=== PATIENT | male | born 1965 | race American Indian/Alaskan Native ===

== ENCOUNTER 2016-03-29 09:44 | Emergency (ER) | payer OTHER ==
[2016-03-29] MEDS ORDERED: MOTRIN PO ONE (10:18)
--- NOTE | 2016-03-29 12:24 | XRay Report ---
ROUTINE CHEST, TWO VIEWS: HISTORY: Shortness of breath, wheezing. No comparison. There is mild hyperinflation versus good inspiration. Correlate for history of smoking. A subtle opacity is identified at the left lung base on the PA view only. This may represent an early infiltrate. The remainder of the lungs are clear. No pleural effusion or pneumothorax. Normal heart and mediastinal structures. Normal bony thorax. IMPRESSION: Mild hyperinflation. Questionable early infiltrate at the left lung base. Correlate for early pneumonia.
[2016-03-29 12:25] LABS: Basophils % (Auto) 0.3 % (0.0-1.8); Eosinophils % (Auto) 0.1 % (0.0-4.3); Hematocrit 47.3 % (35.5-45.6); Hemoglobin 15.7 gm/dl (11.8-15.2); Mean Corpuscular HGB Conc 33 % (32-34); Mean Corpuscular Hemoglobin 30 pg (28-32); Mean Corpuscular Volume 90 fl (84-94); Platelet Count 249 K/mm3 (140-440); Red Blood Count 5.26 M/mm3 (3.65-5.03); Red Cell Distribution Width 12.6 % (13.2-15.2); White Blood Count 17.7 K/mm3 (4.5-11.0)
[2016-03-29 12:43] LABS: Anion Gap 21 mmol/L; BUN/Creatinine Ratio 8.33; Blood Urea Nitrogen 10 mg/dL (9-20); Calcium 9.7 mg/dL (8.4-10.2); Carbon Dioxide 21 mmol/L (22-30); Chloride 96.9 mmol/L (98-107); Glucose 103 mg/dL (75-100); Potassium 4.2 mmol/L (3.6-5.0); Sodium 135 mmol/L (137-145)
[2016-03-29 12:46] VITALS: BP 110/90
[2016-03-29] MEDS ORDERED: NACL 0.9% 1000 ML 1,000 ML IV ONE (12:57)
[2016-03-29] MEDS ORDERED: ROCEPHIN/NS 1 GM/50 ML 1 GM/50 ML BAG IV ONE (12:58)
--- NOTE | 2016-03-29 13:03 | Emergency Department Report ---
- General Chief Complaint: Upper Respiratory Infection Stated Complaint: COUGH/CHILLS/CONGESTION Time Seen by Provider: 03/29/16 11:47 Source: patient Mode of arrival: Ambulatory Limitations: No Limitations - History of Present Illness Initial Comments: Patient presents with sob, cough, congestion, fever x 4 days. Denies any medical hx except had pneumonia "a long time ago." Denies n/v/d, abdominal pain. MD Complaint: fever, cough, nasal congestion -: Gradual Severity scale (0 -10): 5 Consistency: intermittent Worsens With: nothing Associated Symptoms: fever, chills, nasal congestion, cough. denies: abdominal pain, nausea, vomiting, diarrhea - Related Data Previous Rx's Medication Instructions Recorded Last Taken Type ALBUTEROL Inhaler [ProAir HFA 2 puff IH QID PRN #1 inhalation 03/29/16 Unknown Rx Inhaler] Azithromycin [Zithromax Z-SEAN] 250 mg PO DAILY #6 tablet 03/29/16 Unknown Rx Allergies Allergy/AdvReac Type Severity Reaction Status Date / Time No Known Allergies Allergy Verified 03/29/16 10:18 ED Review of Systems ROS: Stated complaint: COUGH/CHILLS/CONGESTION Other details as noted in HPI Constitutional: denies: chills, fever Eyes: denies: eye pain, eye discharge, vision change ENT: congestion. denies: ear pain, throat pain Respiratory: cough, shortness of breath. denies: wheezing Cardiovascular: denies: chest pain, palpitations Endocrine: no symptoms reported Gastrointestinal: denies: abdominal pain, nausea, diarrhea Genitourinary: denies: urgency, dysuria Musculoskeletal: denies: back pain, joint swelling, arthralgia Skin: denies: rash, lesions Neurological: denies: headache, weakness, paresthesias ED Past Medical Hx - Past Medical History Previous Medical History?: No - Surgical History Past Surgical History?: No - Social History Smoking Status: Current Every Day Smoker Substance Use Type: Alcohol - Medications Home Medications: Home Medications Medication Instructions Recorded Confirmed Last Taken Type ALBUTEROL Inhaler [ProAir HFA 2 puff IH QID PRN #1 inhalation 03/29/16 Unknown Rx Inhaler] Azithromycin [Zithromax Z-SEAN] 250 mg PO DAILY #6 tablet 03/29/16 Unknown Rx ED Physical Exam - General Limitations: No Limitations General appearance: alert, in no apparent distress, other (nontoxic appearance) - Head Head exam: Present: atraumatic, normocephalic - Eye Eye exam: Present: normal appearance, PERRL - ENT ENT exam: Present: TM's normal bilaterally - Expanded ENT Exam Expanded Mouth exam: Present: normal external inspection Teeth exam: Present: normal inspection Throat exam: Positive: normal inspection - Neck Neck exam: Present: normal inspection, full ROM. Absent: tenderness, lymphadenopathy - Respiratory Respiratory exam: Present: normal lung sounds bilaterally, wheezes (right lobe) . Absent: respiratory distress - Cardiovascular Cardiovascular Exam: Present: normal rhythm, tachycardia. Absent: systolic murmur, diastolic murmur, rubs, gallop - GI/Abdominal GI/Abdominal exam: Present: soft, normal bowel sounds. Absent: tenderness - Extremities Exam Extremities exam: Present: normal inspection, full ROM - Back Exam Back exam: Present: normal inspection, full ROM - Neurological Exam Neurological exam: Present: alert, oriented X3 - Psychiatric Psychiatric exam: Present: normal affect, normal mood - Skin Skin exam: Present: warm, dry, intact, normal color. Absent: rash ED Course Vital Signs 03/29/16 03/29/16 10:14 12:46 Temperature 101.5 F H 98.6 F Pulse Rate 128 H 118 H Respiratory 18 20 Rate Blood Pressure 144/109 Blood Pressure 110/90 [Left] O2 Sat by Pulse 98 97 Oximetry - Reevaluation(s) Reevaluation #1: 03/29/16 13:[address] Zavaleta about this pt, she informs to give IV fluids and 1g of Rocephin, d/c on azithromax ED Medical Decision Making - Lab Data Result diagrams: 03/29/16 12:14 03/29/16 12:14 - Radiology Data ROUTINE CHEST, TWO VIEWS: HISTORY: Shortness of breath, wheezing. No comparison. There is mild hyperinflation versus good inspiration. Correlate for history of smoking. A subtle opacity is identified at the left lung base on the PA view only. This may represent an early infiltrate. The remainder of the lungs are clear. No pleural effusion or pneumothorax. Normal heart and mediastinal structures. Normal bony thorax. IMPRESSION: Mild hyperinflation. Questionable early infiltrate at the left lung base. Correlate for early pneumonia. - Medical Decision Making Patient presents with fever, cough, congestion 4 days. No medical history except for pneumonia which he states was a long time ago. Elevated heart rate the latest being 118, elevated blood pressure on arrival but now 110/90, fever of 101.5 now 98 after ibuprofen. Chest xray shows early pneumonia. Patient has received Rocephin 1 g IV and 1000 normal saline bolus. I will give him a prescription for Zithromax, albuterol inhaler. I will advise him to follow up with his PCP in 3-4 days for reevaluation of his pneumonia. White count is 17, 000 - Differential Diagnosis uri, pneumonia Critical Care Time: No Critical care attestation.: If time is entered above; I have spent that time in minutes in the direct care of this critically ill patient, excluding procedure time. ED Disposition Clinical Impression: Pneumonia Disposition: DISCHARGED TO HOME OR SELFCARE Is pt being admited?: No Does the pt Need Aspirin: No Condition: Stable Instructions: Bacterial Pneumonia (ED) Additional Instructions: It is advised that you stay home and rest for a couple of days, increase fluid intake, take your medications without missing any doses. Please f/u with your primary care provider in 3-4 days to re-evaluate wheezing, and fever. If shortness of breath worsens, chest pain, fever uncontrolled by OTC ibuprofen return back to the ED. Prescriptions: ALBUTEROL Inhaler [ProAir HFA Inhaler] 2 puff IH QID PRN #1 inhalation PRN Reason: Shortness Of Breath Azithromycin [Zithromax Z-SEAN] 250 mg PO DAILY #6 tablet Referrals: PRIMARY CARE, [Primary Care Provider] - 3-5 Days Forms: Work/School Release Form(ED) Time of Disposition: 13:54
== END 2016-03-29 14:48 | disposition home or self-care (01) ==
LOC: ED 09:44
DX: J18.9 Pneumonia, unspecified organism (principal); F17.200 Nicotine dependence, unspecified, uncomplicated
CPT/HCPCS: 36415; 71020; 80048; 85025; 96365; 99284; J0696; J7030

== ENCOUNTER 2017-02-28 09:37 | Emergency (ER) | payer SELFPAY ==
--- NOTE | 2017-02-28 13:54 | Emergency Department Report ---
HPI - General Chief Complaint: Upper Respiratory Infection Time Seen by Provider: 02/28/17 13:53 - HPI HPI: Patient reports fever, nasal and chest congestion. He said he has been having intermittent pain to right facial area. Denies any pain to his right eye as noted in triage note where it says right eye but he said pain is a right facial area . He said his symptoms started yesterday. He took some Tylenol without any relief. Pain to right facial area 7 out of 10 and aching on and off. Denies any fever but reports that he has chills and body aches. Denies any chest pain or shortness of breath. Denies any abdominal or back pain. ED Past Medical Hx - Past Medical History Previous Medical History?: No - Surgical History Past Surgical History?: No - Family History Family history: no significant - Social History Smoking Status: Current Every Day Smoker Substance Use Type: Alcohol - Medications Home Medications: Home Medications Medication Instructions Recorded Confirmed Last Taken Type ALBUTEROL Inhaler [ProAir HFA 2 puff IH QID PRN #1 inhalation 03/29/16 Unknown Rx Inhaler] Azithromycin [Zithromax Z-SEAN] 250 mg PO DAILY #6 tablet 03/29/16 Unknown Rx Ibuprofen [Motrin] 600 mg PO Q8H PRN #15 tablet 02/28/17 Unknown Rx Oseltamivir [Tamiflu] 75 mg PO Q12H 5 Days #10 capsule 02/28/17 Unknown Rx guaiFENesin/CODEINE [Robitussin AC] 5 ml PO Q8H PRN #75 ml 02/28/17 Unknown Rx ED Review of Systems ROS: Stated complaint: FEVER,CONGESTION Other details as noted in HPI Comment: All other systems reviewed and negative Constitutional: no symptoms reported Eyes: denies: eye pain, eye discharge ENT: throat pain, congestion. denies: ear pain Respiratory: cough. denies: orthopnea, shortness of breath, SOB with exertion, SOB at rest, stridor, wheezing Cardiovascular: denies: chest pain, palpitations, dyspnea on exertion, edema, syncope, paroxysmal nocturnal dyspnea Gastrointestinal: denies: abdominal pain, nausea, vomiting, diarrhea Genitourinary: denies: urgency, dysuria, frequency, hematuria, discharge Musculoskeletal: myalgia. denies: back pain, arthralgia Skin: denies: rash Neurological: headache. denies: weakness, numbness, paresthesias, confusion, abnormal gait, vertigo Physical Exam - Physical Exam Vital Signs: Vital Signs 02/28/17 10:18 Temperature 98.2 F Pulse Rate 112 H Respiratory 18 Rate Blood Pressure 125/93 O2 Sat by Pulse 99 Oximetry Vital Signs 02/28/17 02/28/17 10:18 14:42 Temperature 98.2 F Pulse Rate 112 H Respiratory 18 18 Rate Blood Pressure 125/93 O2 Sat by Pulse 99 Oximetry Vital Signs 02/28/17 02/28/17 02/28/17 10:18 14:42 16:00 Temperature 98.2 F 98.9 F Pulse Rate 112 H 91 H Respiratory 18 18 16 Rate Blood Pressure 125/93 125/82 O2 Sat by Pulse 99 99 Oximetry General: This is a 51-year-old male well-nourished well-developed in no acute distress. Physical Exam: Head: Normocephalic, atraumatic, no abrasion, no bruising and no contusion. Eyes: Biateral pupils equal and reactive to light, bilateral EOM intact.. Bilateral conjunctival and sclera without injection, normal accommodation. No nystagmus Mouth: Moist, no pharyngeal exudate or erythema. No peritonsillar abscesses. Uvula is midline and oral airways patent. Ears: TM congested without erythema. Bilateral EAC without any redness swelling or drainage. No mastoid bone tenderness Nose: Bilateral nasal turbinates congested with erythema and clear drainage. Maxillary and frontal sinuses non-tender to palpate. Neck: Supple, No Cervical adenopathy, full range of motion and no C-spine tenderness. No swelling or tracheal deviation normal reflexes Cardiovascular: S1, S2. Regular rate and rhythm. No murmur. Capillary refill is less then 3 seconds. Lungs: Clear to auscultate bilaterally. No rhonchi, wheezes or rales. No chest wall tenderness. No chest contusion. No bruising to chest. MSK: Strength 5/5 in all extremities. No joint deformity or crepitus. Normal inspection. Full range of motion to all extremities. No laceration, abrasion or ecchymotic area noted. Abdomen: Non-tender to palpate in all quadrants, no guarding or rebound tenderness, positive bowel sounds in all quadrants. No CVA tenderness. No hernia, bruit or mass. No rigidity or distention. Extremities: No clubbing, cyanosis or edema. +2 pulses. No neurovascular compromise Skin: Clean, dry and intact. No rash or lesions. Neurological: GCS at 15, Pt is alert and oriented 3 speech is clear . Gait is normal Back: No vertebral tenderness, no paraspinal tenderness. Normal infection Psych: Normal mood and behavior ED Course Vital Signs 02/28/17 10:18 Temperature 98.2 F Pulse Rate 112 H Respiratory 18 Rate Blood Pressure 125/93 O2 Sat by Pulse 99 Oximetry Vital Signs 02/28/17 02/28/17 02/28/17 10:18 14:42 16:00 Temperature 98.2 F 98.9 F Pulse Rate 112 H 91 H Respiratory 18 18 16 Rate Blood Pressure 125/93 125/82 O2 Sat by Pulse 99 99 Oximetry - Reevaluation(s) Reevaluation #1: 02/28/17 15:51 Patient received Motrin 800 mg emergency room for pain relief. He is able to tolerate oral liquids without any nausea or vomiting. Influenza A and B test is negative and strep test is negative cultures are pending. ED Medical Decision Making - Lab Data Influenza A and B- Strep test negative culture pending - Medical Decision Making ED course: Recent hair reported flulike symptoms. Influenza A and B is negative and strep test was also negative. He was given Motrin 800 mg emergency room and orally hydrated which she tolerated well. Patient discharged home with diagnosis of viral syndrome and cough. Patient educated on his strep and influenza result. He voiced understanding and discharged home with prescription for guaifenesin with codeine, Motrin and, fluids and follow- up with his primary care physician in 2-3 days and if he does not have a primary care to follow up at [facility]. Critical care attestation.: If time is entered above; I have spent that time in minutes in the direct care of this critically ill patient, excluding procedure time. ED Disposition Clinical Impression: Acute viral syndrome, Cough in adult, Body aches Disposition: - TO HOME OR SELFCARE Is pt being admited?: No Does the pt Need Aspirin: No Condition: Stable Instructions: Viral Syndrome (ED), Acute Cough (ED) Additional Instructions: Please increase her fluid intake to 2-3 L of liquid to include Gatorade and/or water/orange juice per day. Take medication as prescribed Please do not drive or operate heavy machinery while taking Tamiflu as this medication causes drowsiness We'll up with your primary care physician in 2-3 days and if he do not have one please follow-up with [facility] Prescriptions: guaiFENesin/CODEINE [Robitussin AC] 5 ml PO Q8H PRN #75 ml PRN Reason: Cough Ibuprofen [Motrin] 600 mg PO Q8H PRN #15 tablet PRN Reason: Pain Oseltamivir [Tamiflu] 75 mg PO Q12H 5 Days #10 capsule Referrals: PRIMARY CARE,MD [Primary Care Provider] - 2-3 Days [facility] [Outside] - 2-3 Days Forms: Work/School Release Form(ED)
[2017-02-28] MEDS ORDERED: MOTRIN PO ONE (13:55)
[2017-02-28 16:05] VITALS: BP 125/82
== END 2017-02-28 16:05 | disposition home or self-care (01) ==
LOC: ED 09:37
DX: B34.9 Viral infection, unspecified (principal); M79.1 Myalgia; F17.200 Nicotine dependence, unspecified, uncomplicated
CPT/HCPCS: 87116; 87400; 87430; 93005; 93010

== ENCOUNTER 2018-03-25 02:25 | Emergency (ER) | payer SELFPAY ==
[2018-03-25 02:48] VITALS: BP 124/74
[2018-03-25] MEDS ORDERED: TYLENOL PO ONE (02:57)
[2018-03-25] MEDS ORDERED: TYLENOL ONE (02:58)
--- NOTE | 2018-03-25 08:10 | Emergency Department Report ---
ED Back Pain/Injury HPI - General Chief Complaint: Back Pain/Injury Stated Complaint: BACK PAIN Source: patient Limitations: No Limitations - History of Present Illness Initial Comments: This is a 52-year-old after [place] male who presents with low back pain and chest discomfort with cough since yesterday. Patient states he has been coughing for the past 3 days but yesterday around 1600 he coughed and felt pain go across the lower back with each cough. He now reports pain is 10 out of 10 on pain scale like a tightening to lower back with each cough. Patient states he does a lot of heavy lifting at work but does not recall injury. He denies change in bowel or voiding pattern, fever, rhinorrhea, numbness or tingling, paresthesias, or weakness. MD Complaint: back pain Onset/Timin -: days(s) Similar Symptoms Previously: No Place: home Radiation: none Severity: severe Severity scale (0 -10): 10 Quality: aching, other (tightening) Consistency: intermittent Improves With: immobilization Worsens With: movement, deep breaths/cough Context: unknown Associated Symptoms: cough, fever/chills. denies: confusion, weakness, chest pain, numbness, difficulty walking, difficulty urinating, diaphoresis, incontinence, constipation, headaches, abdominal pain, loss of appetite, malaise, nausea/vomiting, rash, seizure, shortness of breath, syncope Treatments Prior to Arrival: NSAIDS - Related Data Previous Rx's Medication Instructions Recorded Last Taken Type ALBUTEROL Inhaler (OR & NICU) 2 puff IH QID PRN #1 inhalation 03/29/16 Unknown Rx [ProAir HFA Inhaler] Azithromycin [Zithromax Z-SEAN] 250 mg PO DAILY #6 tablet 03/29/16 Unknown Rx Ibuprofen [Motrin] 600 mg PO Q8H PRN #15 tablet 02/28/17 Unknown Rx Oseltamivir [Tamiflu] 75 mg PO Q12H 5 Days #10 capsule 02/28/17 Unknown Rx guaiFENesin/CODEINE [Robitussin AC] 5 ml PO Q8H PRN #75 ml 02/28/17 Unknown Rx ALBUTEROL Inhaler(NF) [VENTOLIN 1 puff IH Q4-6H PRN #1 inha 03/25/18 Unknown Rx Inhaler(NF)] Azithromycin [Zithromax TAB] 250 mg PO QDAY #6 tablet 03/25/18 Unknown Rx Benzonatate [Tessalon Perle] 100 mg PO TID PRN #30 capsule 03/25/18 Unknown Rx Allergies Allergy/AdvReac Type Severity Reaction Status Date / Time No Known Allergies Allergy Verified 03/29/16 10:18 ED Review of Systems ROS: Stated complaint: BACK PAIN Other details as noted in HPI Constitutional: denies: chills, fever Respiratory: cough. denies: shortness of breath, wheezing Cardiovascular: denies: chest pain, palpitations Gastrointestinal: denies: abdominal pain, nausea, diarrhea Genitourinary: denies: urgency, dysuria Musculoskeletal: back pain. denies: joint swelling, arthralgia Skin: denies: rash, lesions Neurological: denies: headache, weakness, paresthesias Psychiatric: denies: anxiety, depression ED Past Medical Hx Family history: no significant family history ED Back Pain Physical Exam - Exam General: Vital signs noted. No distress. Alert and acting appropriately. Back/Abdomen: Yes Sacroiliac Tenderness, No Abdominal Tenderness, No Perithoracic Tenderness, No Perilumbar Tenderness, No Flank Tenderness, No Straight Leg Raise Pain Neuro: Yes Normal Sensation, Yes Normal DTR's, Yes Normal Gait, No Motor Weakness ED Course Vital Signs 03/25/18 02:36 Temperature 98.6 F Pulse Rate 117 H Respiratory 20 Rate Blood Pressure 124/74 O2 Sat by Pulse 97 Oximetry ED Medical Decision Making - Radiology Data Radiology results: report reviewed EXAM: XR SPINE LUMBOSACRAL 2-3V HISTORY: low back pain COMPARISON: None. TECHNIQUE: Three views of the lumbar spine FINDINGS: There is no acute fracture or dislocation. The vertebral body heights are maintained. There grade 1 anterolisthesis of L5 on S1 and mild narrowing at L5-S1. The paravertebral soft tissues are normal. IMPRESSION: Mild degenerative change at L5-S1. No acute fracture or dislocation. EXAM: XR CHEST ROUTINE 2V HISTORY: cough and discomfort COMPARISON: None. TECHNIQUE: Frontal and lateral views of the chest FINDINGS: Normal heart size. Tortuous thoracic aorta. Patchy opacities in the right middle lobe and lingula. No pleural effusion or pneumothorax. No acute bony or soft tissue abnormality. IMPRESSION: Patchy infiltrates in the right middle lobe and the lingula. - Medical Decision Making This is a 52 y.o. male resents to the emergency room with a cough and low back pain for 2-3 days. Patient is stable and was examined by me. No acute signs of distress noted. Patient does not seem toxic or ill in appearance. Given Tylenol in ER once. Chest xray and L-spine has been obtained and dictated by radiologist. Mild degenerative change at L5-S1. No acute fracture or dislocation. Patchy infiltrates in the right middle lobe and the lingula. Given Rocephin 500 mg IM once while in ER. Patient notified of x-ray results of pneumonia. He agrees to the ED plan of care to treat outpatient. No further questions noted. Discharged home with azithromycin, albuterol inhaler, and benzonatate. Follow up with PCP in 24-48 hours. Critical care attestation.: If time is entered above; I have spent that time in minutes in the direct care of this critically ill patient, excluding procedure time. 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 Follow up with [facility] in 48-72 hours. Increase fluids to prevent dehydration. Avoid smoking and rest. Prescriptions: ALBUTEROL Inhaler(NF) [VENTOLIN Inhaler(NF)] 1 puff IH Q4-6H PRN #1 inha PRN Reason: Shortness Of Breath Azithromycin [Zithromax TAB] 250 mg PO QDAY #6 tablet Benzonatate [Tessalon Perle] 100 mg PO TID PRN #30 capsule PRN Reason: Cough Referrals: KHOA HERRON [Primary Care Provider] - 3-5 Days
--- NOTE | 2018-03-25 09:16 | XRay Report ---
FINAL REPORT EXAM: XR CHEST ROUTINE 2V HISTORY: cough and discomfort COMPARISON: None. TECHNIQUE: Frontal and lateral views of the chest FINDINGS: Normal heart size. Tortuous thoracic aorta. Patchy opacities in the right middle lobe and lingula. No pleural effusion or pneumothorax. No acute bony or soft tissue abnormality. IMPRESSION: Patchy infiltrates in the right middle lobe and the lingula.
--- NOTE | 2018-03-25 09:23 | XRay Report ---
FINAL REPORT EXAM: XR SPINE LUMBOSACRAL 2-3V HISTORY: low back pain COMPARISON: None. TECHNIQUE: Three views of the lumbar spine FINDINGS: There is no acute fracture or dislocation. The vertebral body heights are maintained. There grade 1 a nterolisthesis of L5 on S1 and mild narrowing at L5-S1. The paravertebral soft tissues are normal. IMPRESSION: Mild degenerative change at L5-S1. No acute fracture or dislocation.
[2018-03-25] MEDS ORDERED: ROCEPHIN IM ONE (09:35)
[2018-03-25] MEDS ORDERED: XYLOCAINE 1% MPF 5 mL INFILTRATI ONE (09:35)
== END 2018-03-25 10:30 | disposition home or self-care (01) ==
LOC: ED 02:25
DX: J18.9 Pneumonia, unspecified organism (principal); M54.5 Low back pain
CPT/HCPCS: 71046; 72100; 96372; 99283; J0696

== ENCOUNTER 2018-05-22 03:34 | Emergency (ER) | payer OTHER ==
[2018-05-22 04:29] LABS: Basophils % (Auto) 0.7 % (0.0-1.8); Eosinophils % (Auto) 0.2 % (0.0-4.3); Hematocrit 44.1 % (35.5-45.6); Hemoglobin 15.4 gm/dl (11.8-15.2); Lymphocytes # (Auto) 1.8 K/mm3 (1.2-5.4); Lymphocytes % (Auto) 21.6 % (13.4-35.0); Mean Corpuscular HGB Conc 35 % (32-34); Mean Corpuscular Volume 91 fl (84-94); Monocytes # (Auto) 0.8 K/mm3 (0.0-0.8); Monocytes % (Auto) 9.2 % (0.0-7.3); Platelet Count 154 K/mm3 (140-440); Red Blood Count 4.85 M/mm3 (3.65-5.03); Red Cell Distribution Width 13.4 % (13.2-15.2)
[2018-05-22 04:30] LABS: Basophils # (Auto) 0.1 K/mm3 (0.0-0.1)
--- NOTE | 2018-05-22 04:40 | XRay Report ---
PROCEDURE: XR SPINE LUMBOSACRAL 2-3V TECHNIQUE: AP and lateral views of the lumbar spine were obtained. HISTORY: lower back pain COMPARISONS: None FINDINGS: There is very mild disc degeneration at the L2-3 level with endplate spurring. The alignment appears normal. There is no evidence of fracture. The SI joints appear normal. The soft tissues are well-main tained. IMPRESSION: Very mild degenerative changes at the L2-3 level. No acute process.. This document is electronically signed by West Richardson MD., May 22 2018 04:39:13 AM ET
[2018-05-22 04:49] LABS: BUN/Creatinine Ratio 16; Blood Urea Nitrogen 14 mg/dL (9-20); Calcium 9.5 mg/dL (8.4-10.2); Hemolysis Index 12
--- NOTE | 2018-05-22 05:08 | Emergency Department Report ---
Chief Complaint: Dizziness Stated Complaint: DIZZINESS - HPI History of Present Illness: AMBULATORY TO ROOM VSS ABC INTACT MSE COMPLETED - Exam Vital Signs: Vital Signs 05/22/18 05/22/18 03:38 03:42 Temperature 98.5 F 98.5 F Pulse Rate 115 H 110 H Respiratory 18 18 Rate Blood Pressure 128/87 128/87 O2 Sat by Pulse 99 100 Oximetry MSE screening note: Focused history and physical exam performed. Due to findings the following was ordered: ED Medical Decision Making - Lab Data Result diagrams: 05/22/18 03:56 05/22/18 03:56 ED Disposition for MSE Condition: Stable Referrals: ARJUN AMOR MD [Primary Care Provider] - 3-5 Days
--- NOTE | 2018-05-22 05:39 | XRay Report ---
PROCEDURE: XR CHEST ROUTINE 2V TECHNIQUE: PA and lateral chest radiographs HISTORY: DIZZY COMPARISONS: None available FINDINGS: No mediastinal shift. Cardiac silhouette is not enlarged. No pneumothorax, effusion, or focal pulmo nary opacity. No acute skeletal finding. IMPRESSION: No focal pulmonary opacity. This document is electronically signed by Sean Badillo MD., May 22 2018 05:37:32 AM ET
[2018-05-22 06:39] LABS: Hematocrit 44.3 % (35.5-45.6); Hemoglobin 15.1 gm/dl (11.8-15.2); Mean Corpuscular HGB Conc 34 % (32-34); Mean Corpuscular Volume 92 fl (84-94); Platelet Count 155 K/mm3 (140-440); Red Blood Count 4.82 M/mm3 (3.65-5.03); Red Cell Distribution Width 13.5 % (13.2-15.2)
[2018-05-22 07:00] LABS: Blood Urea Nitrogen 13 mg/dL (9-20)
[2018-05-22 07:01] LABS: Alanine Aminotransferase 47 units/L (7-56); Albumin 3.8 g/dL (3.9-5); BUN/Creatinine Ratio 16; Calcium 9.6 mg/dL (8.4-10.2); Hemolysis Index 20
--- NOTE | 2018-05-22 07:53 | Emergency Department Report ---
HPI - General Chief Complaint: Dizziness Time Seen by Provider: 05/22/18 07:28 - HPI HPI: This is a 52-year-old male presents to ED dizziness that began today. Patient states that he had not eaten last night and went to bed. Patient states that this morning he felt a little dizzy dizziness resolved. He states that he felt like the room was spinning around. he presents to be evaluated. Patient denies any chest pain, shortness of breath, headache, blurry vision. He denies any injury, trauma or loss of consciousness. ED Past Medical Hx - Past Medical History Previous Medical History?: No - Surgical History Past Surgical History?: No - Social History Smoking Status: Never Smoker Substance Use Type: None - Medications Home Medications: Home Medications Medication Instructions Recorded Confirmed Last Taken Type ALBUTEROL Inhaler (OR & NICU) 2 puff IH QID PRN #1 inhalation 03/29/16 Unknown Rx [ProAir HFA Inhaler] Azithromycin [Zithromax Z-SEAN] 250 mg PO DAILY #6 tablet 03/29/16 Unknown Rx Oseltamivir [Tamiflu] 75 mg PO Q12H 5 Days #10 capsule 02/28/17 Unknown Rx guaiFENesin/CODEINE [Robitussin AC] 5 ml PO Q8H PRN #75 ml 02/28/17 Unknown Rx ALBUTEROL Inhaler(NF) [VENTOLIN 1 puff IH Q4-6H PRN #1 inha 03/25/18 Unknown Rx Inhaler(NF)] Azithromycin [Zithromax TAB] 250 mg PO QDAY #6 tablet 03/25/18 Unknown Rx Benzonatate [Tessalon Perle] 100 mg PO TID PRN #30 capsule 03/25/18 Unknown Rx Ibuprofen [Motrin 600 MG tab] 600 mg PO Q8H PRN #15 tablet 05/22/18 Unknown Rx Meclizine [Antivert] 25 mg PO BID #20 tablet 05/22/18 Unknown Rx ED Review of Systems ROS: Stated complaint: DIZZINESS Other details as noted in HPI Comment: All other systems reviewed and negative Physical Exam - Physical Exam Vital Signs: Vital Signs 05/22/18 05/22/18 03:38 03:42 Temperature 98.5 F 98.5 F Pulse Rate 115 H 110 H Respiratory 18 18 Rate Blood Pressure 128/87 128/87 O2 Sat by Pulse 99 100 Oximetry Physical Exam: GENERAL: Alert and oriented x3, no apparent distress, Normal Gait, atraumatic. Resting comfortably in the ED bed HEAD: Head is normocephalic and a-traumatic. EYES: Extra ocular muscles are intact. Pupils are equal, round, and reactive to light and accommodation. EARS: symetrical, atraumatic, non tender, ear canal clear and moderate cerumen, tympanic membrance non inflamed. gross auditory nml bilaterally. LUNGS: Symetrical with respiration, No wheezing, no rales or crackles, CTAB. HEART: S1, S2 present, regular rate and rhythm without murmur, no rubs, no gallops. Non tender to palpation EXTREMITIES/MUSCULOSKELETAL: No cyanosis, clubbing, rash, lesions or edema. Full ROM bilaterally. NEUROLOGIC: The patient is cooperative with no focal neurologic deficits. Cranial nerve I through XII is intact . No ataxia. SKIN: Warm and dry, No lesions, No ulceration or induration present. ED Course Vital Signs 05/22/18 05/22/18 03:38 03:42 Temperature 98.5 F 98.5 F Pulse Rate 115 H 110 H Respiratory 18 18 Rate Blood Pressure 128/87 128/87 O2 Sat by Pulse 99 100 Oximetry ED Medical Decision Making - Lab Data Result diagrams: 05/22/18 06:20 05/22/18 06:20 - Medical Decision Making 52-year-old male presents with a vertigo All labs within normal limits, patient refused to give a urine sample during his ED stay Patient is speaking in clear sentences he is in no neurological deficit. Discussed findings with the patient. Discussed the patient to follow up with her primary care physician has referred Patient will be going home on meclizine treated for his pain Critical care attestation.: If time is entered above; I have spent that time in minutes in the direct care of this critically ill patient, excluding procedure time. ED Disposition Clinical Impression: Vertigo Disposition: DC-01 TO HOME OR SELFCARE Is pt being admited?: No Does the pt Need Aspirin: No Condition: Stable Instructions: Vertigo (ED) Additional Instructions: Make sure to follow up with the primary care physician as discussed. Take all your medications as you've been prescribed. If you have any worsening symptoms or develop new symptoms please return to ED immediately.Discharge Prescriptions: Meclizine [Antivert] 25 mg PO BID #20 tablet Ibuprofen [Motrin 600 MG tab] 600 mg PO Q8H PRN #15 tablet PRN Reason: Pain Referrals: ARJUN AMOR MD [Primary Care Provider] - 3-5 Days [facility] [Provider Group] - 3-5 Days Forms: Work/School Release Form(ED) Time of Disposition: 07:56
[2018-05-23 18:15] VITALS: BP 128/87
== END 2018-05-22 08:24 | disposition home or self-care (01) ==
LOC: ED 03:34
DX: R42 Dizziness and giddiness (principal)
CPT/HCPCS: 36415; 71046; 72100; 80048; 80053; 85025; 85027; 93005; 93010